=== PATIENT | female | born 1980 ===

== ENCOUNTER 2017-08-01 10:06 | Outpatient (CLI) | payer MEDICAID ==
--- NOTE | 2017-08-01 14:39 | Cat Scan Report ---
FINAL REPORT EXAM: CT SINUSES WO CON HISTORY: J33.0 NASAL POLYP TECHNIQUE: CT of the Sinuses without IV contrast. Coronal and sagittal reconstructed imaging provided. PRIORS: None currently available. FINDINGS: Paranasal sinuses are developed. Mild mucosal thickening in both maxillary sinuses. No osseous wall thickening identified. Opacification of the ethmoid air cells without expansile or destructive features. Moderate mucosal thickening in the left sphenoid sinus. [id number] mucosal thickening in the hypoplastic bilateral frontal sinuses. Distinct nasal cavity lesion is not clearly evident. No significant air-fluid levels. There is no fracture. Nasal septum is midline. Globes appear intact. Retrobulbar space is negative. Images of the middle ear and mastoid air cells are negative. Images of the temporal mandibular joint are unremarkable. The infratemporal fossa is unremarkable. Facial soft tissues are grossly noted. IMPRESSION: Moderate to severe sinus disease. Suspect polyposis syndrome.
== END 2017-08-01 10:07 | disposition home or self-care (01) ==
LOC: CT 10:06
PROVIDERS: ATTEND Otolaryngology
DX: J32.2 Chronic ethmoidal sinusitis (principal); J33.9 Nasal polyp, unspecified
CPT/HCPCS: 70486